=== PATIENT | female | born 1985 | race Caucasian/White ===

== ENCOUNTER 2017-02-22 09:41 | Outpatient (CLI) | payer OTHER ==
--- NOTE | 2017-02-22 14:24 | DIAGNOSTIC IMAGING REPORT ---
PROCEDURE: US COMPLETE PELVIC W/TRANSVAG INDICATION: PELVIC PAIN TECHNIQUE: Transabdominal and endovaginal balderas scale and color Doppler sonographic images of the female pelvis were obtained. COMPARISON: CT abdomen/pelvis 09/12/2015 and pelvic ultrasound 07/31/2009. FINDINGS: TRANSABDOMINAL SCANS: Mild free fluid in the cul-de-sac. Normal kidneys. TRANSVAGINAL SCANS: Anteverted uterus measures 5 x 3.5 x 4.1 cm. Myometrium is unremarkable. Normal endometrium measures 10 mm. Right ovary measures 3.4 x 2.6 x 2.5 cm and left ovary 3.4 x 4.1 x 2.2 cm small peripheral follicles. Mild free fluid in the bilateral adnexa. IMPRESSION: 1. Bilateral ovarian follicles with mild free fluid bilaterally suggestive of an occult ruptured ovarian follicle. 2. Normal uterus
== END 2017-02-22 23:00 ==
LOC: US SRH 09:41
DX: R10.2 Pelvic and perineal pain (principal); Z80.3 Family history of malignant neoplasm of breast